=== PATIENT | male | born 1960 | race Caucasian/White ===

== ENCOUNTER 2022-04-19 09:53 | Inpatient (IN) ==
--- NOTE | 2022-03-28 09:01 | PAT Medication Instructions ---
Medication Instructions Date of Service March 28, 2022 Home Medications aspirin 81 mg capsule 81 mg PO HS atorvastatin 80 mg tablet 80 mg PO PM hydrocodone 5 mg-acetaminophen 325 mg tablet 1 tab PO Q6H PRN Pain indomethacin 25 mg capsule 25 mg PO TID lisinopril 40 mg tablet 40 mg PO HS omeprazole 20 mg tablet,delayed release 20 mg PO QAM zolpidem 10 mg tablet 10 mg PO HS PRN Sleep ASK your surgeon for instructions indomethacin 25 mg capsule 25 mg PO TID ASK your prescriber and surgeon aspirin 81 mg capsule 81 mg PO HS Take morning of surgery hydrocodone 5 mg-acetaminophen 325 mg tablet 1 tab PO Q6H PRN Pain (if needed) omeprazole 20 mg tablet,delayed release 20 mg PO QAM Take evening before surgery atorvastatin 80 mg tablet 80 mg PO PM hydrocodone 5 mg-acetaminophen 325 mg tablet 1 tab PO Q6H PRN Pain (if needed) lisinopril 40 mg tablet 40 mg PO HS zolpidem 10 mg tablet 10 mg PO HS PRN Sleep (if needed) Other Notes If you have any questions please call us at [phone] or [phone] or [phone] or [phone]
--- NOTE | 2022-03-31 12:56 | Anesthesiology Consultation ---
Date of Service March 31, 2022 Assessment & Plan (1) Encounter for pre-operative examination: - COVID screening: Per assessment on 03/31: No known COVID-19 positive contacts or current COVID-19 related symptoms. Travel screen negative. Patient vaccinated. At surgeon discretion if preop Covid testing being done. - Outpatient joint assessment: Pt currently scheduled for inpatient pathway. If surgeon requests review for outpatient joint pathway, patient is acceptable candidate for outpatient joint program from anesthesia standpoint pending surgeon's office assessment that patient is motivated, has good support and completes [facility] Program preop requirements. - Neurology office visit (02/24/22): "62-year-old male with history of hypertension, hyperlipidemia, and chronic daily headaches as well as previous left large ICA aneurysm found in 1982 status post 4 surgical procedures including clipping complicated by occlusion of the left internal carotid artery with stroke involving the left [employer]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 presenting to clinic for follow-up. Patient was last seen by myself in July of 2020. We did try 2 rounds of Botox 155 units for chronic headaches although he had no significant improvement. He remains on hydrocodone 7 tablets daily for chronic pain. Pain is predominantly left-sided. It is continuous but waxes and wanes in intensity. He always has some baseline pain. Been tried on several other medications in the past which did not help including gone blocks, Topamax, and gabapentin. There has been discussion the past about concerns for medication overuse headache and he has begun to carefully wean off of hydrocodone... 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 I did discuss concerns regarding medication overuse headache and chronic opioid use. He is working with pharmacy to slowly wean off of hydrocodone tolerated. He is currently down to 7 tablets daily. Headaches have been refractory in the past to Topamax, gabapentin, SHANNON block, and Botox. Headache is side locked on the left side and continuous. He is currently on Celexa for mood which he reports is good. 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 He has not been on this medication in the past. Recommended dose would be 25 mg 3 times daily with meals and titrated as tolerated. However given that he is on Celexa there is some risk of interaction. He will discuss with his PCP, Dr. Schaefer, if he can stop this medication. If patient is able stop Celexa will try indomethacin. Otherwise did briefly discuss consideration of some of the new monoclonal antibody injections. However overall prognosis is likely poor while using high-dose opiate. I will arrange for follow-up in 1 year sooner if needed. They will otherwise keep in touch via [employer] message in." > Pt had trial of indomethacin- stopped d/t reaction of dizziness and unsteadiness. Chart Review Chart Review: Acceptable Risk for Surgery and Patient seen in Pre Admission Testing Teaching & Discussion Pre-Anesthesia Teaching/Discussion Notes: Instructed NPO after midnight before surgery,except medications with 15 cc of water. Medication instructions provided according to the PAT guidelines. History Surgery Operation Date: 04/19/22 13:15 Proposed Procedures p Right Total Shoulder Arthroplasty, Removal Suture [place] - Federico Mccain MD Height/Weight Height: 5 ft 8 in Weight: 85.5 kg Allergies Allergy/AdvReac Type Severity Reaction Status Date / Time strawberry Allergy Unknown Itchy, Unverified 03/31/22 12:59 hives (reaction as child) indomethacin AdvReac Dizziness, Uncoded 03/31/22 12:59 unsteady Medications Home Medications Medication Instructions Recorded Confirmed Last Taken aspirin 81 mg capsule 81 mg PO HS 03/27/22 03/27/22 Unknown atorvastatin 80 mg tablet 80 mg PO PM 03/27/22 03/27/22 Unknown hydrocodone 5 mg-acetaminophen 325 1 tab PO Q6H PRN Pain 03/27/22 03/27/22 Unknown mg tablet indomethacin 25 mg capsule 25 mg PO TID 03/27/22 03/27/22 Unknown lisinopril 40 mg tablet 40 mg PO HS 03/27/22 03/27/22 Unknown omeprazole 20 mg tablet,delayed 20 mg PO QAM 03/27/22 03/27/22 Unknown release zolpidem 10 mg tablet 10 mg PO HS PRN Sleep 03/27/22 03/27/22 Unknown Past Medical History Medical History Chronic pain Chronic head pain GERD (gastroesophageal reflux disease) History of carotid artery disease left large ICA aneurysm found in 1982 s/p 4 surgical procedures including clipping complicated by occlusion of the left internal carotid artery with stroke involving the left [employer]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 History of stroke (right side of each eye b/l) Hyperlipidemia Hypertension Short-term memory loss Exercise / Class Metabolic Activity II 4-5 Yardwork/Stairs/Walk up hill (one FS (no CP, no SOB)) Past Family History Family History Other No family history of adverse response to anesthesia Past Surgical History Surgical History History of lumbar surgery History of surgery on wrist Hx of cerebral aneurysm repair Left internal carotid aneurysm repair x4 (early ) Hx of colonoscopy Hx of rotator cuff surgery Rx2, Lx1 Past Anesthesia History No Hx of Anesthesia Complications and No Family Hx of Anesthesia Complications History of PONV No Hx of PONV and No Hx of Motion Sickness Social History Smoking Status: Current every day smoker tobacco type: cigarettes Smoking cigarettes per day: 18 cigs/day Do You Dip or Chew Tobacco: No Hx Alcohol Use: No Hx Substance Use: No substance use type: does not use Review of Systems Patient denies chest pain, shortness of breath, dyspnea on exertion, fever, chills, cough, wheezing, palpitations. Physical Exam Vital Signs VITALS BP 126/78 P 62 TEMP 98.3 SP02 98%RA RESP 18 PHYSICAL Full cervical extension range of motion. Full TMJ range of motion. TMD 4 finger breaths Mallampati Score 3 Dentition: intact Lungs: clear throughout to auscultation Cardiac: regular rate and rhythm, no murmurs noted Spine: normal Carotid arteries: negative bruit Extremities: no edema Lab Results Anesthesia Preop Results Results Anesthesia Widget: WBC 7.85 K/ul (4.8-10.8) 03/31/22 Hgb 13.4 g/dl (14.0-18.0) L 03/31/22 Hct 41.3 % (42.0-52.0) L 03/31/22 Plt 288 K/uL (130-400) 03/31/22 Na 136 mmol/L (136-145) 03/31/22 K 4.9 mmol/L (3.5-5.1) 03/31/22 Cl 104 mmol/L (98-107) 03/31/22 CO2 30 mmol/L (21-32) 03/31/22 BUN 21 mg/dl (6-23) 03/31/22 Creat 0.97 mg/dl (0.6-1.4) 03/31/22 Glucose Level 110 mg/dl (70-99(Fasting)) H 03/31/22 PT 10.2 Seconds (9.0-12.0) 03/31/22 PTT 27.5 Seconds (21.0-31.0) 03/31/22 INR 1.0 (0.9-1.1) 03/31/22 HA1c 6.1 % (4.5-5.6) H 03/31/22 Urine Color Dark Yellow 03/31/22 Urine Appearance Clear (Clear) 03/31/22 Urine pH 5.5 (4.5-7.5) 03/31/22 Urine Specific [place] 1.034 (1.000-1.030) H 03/31/22 Urine Protein Trace (Negative) H 03/31/22 Urine Glucose (UA) Negative (Negative) 03/31/22 Urine Ketones Trace (Negative) H 03/31/22 Urine Blood Negative (Negative) 03/31/22 Urine Nitrite Negative (Negative) 03/31/22 Urine Bilirubin Negative (Negative) 03/31/22 Urine Urobilinogen Negative (Negative) 03/31/22 Urine Leukocyte Esterase Negative (Negative) 03/31/22 Urine WBC (Auto) 1-5 /hpf (0-5) 03/31/22 Urine RBC (Auto) 0-4 /hpf (0-4) 03/31/22 Urine Hyaline Casts (Auto) 1-5 /lpf (0-5) 03/31/22 Urine Epithelial Cells (Auto) 5-10 /lpf (0-5) H 03/31/22 Urine Bacteria (Auto) Negative (Negative) 03/31/22 Blood Type A Positive 03/31/22 Antibody Screen NEGATIVE 03/31/22 Testing Electrocardiogram Date: 08/03/21 Findings: + NSR @ (74) Chest X-Ray Date: 03/31/22 FINDINGS: Lung volumes are normal. Lungs are clear. There is no pneumothorax or pleural effusion. Cardiac size is normal. Mediastinal contours are normal. There is no evidence for pulmonary edema. IMPRESSION: No acute cardiopulmonary findings. COVID-19 Risk Screen Screening Information COVID-19 Screen Date: 03/31/22 Exposure 21 Days Family/Household +COVID Last 21 Days: No Exposure 10 Days Any COVID Exposure Last 10 Days: No Symptoms Last 10 Days Experienced COVID Sx Last 10 Days: No + COVID 0-90 Days COVID + in Last 0-90 Days: No
--- NOTE | 2022-04-18 10:27 | History & Physical Report ---
Date of Service April 18, 2022 Assessment & Plan (1) Rotator cuff arthropathy of right shoulder: Plan: Treatment options discussed with patient. He has a failed rotator cuff repair with irreparable tear of his rotator cuff. He has failed conservative measures and would like to proceed with surgical intervention. Risks, benefits and alternatives to surgery including but not limited to infection, DVT, pain, stiffness, need for revision surgery, damage to blood vessels, damage to nerves, PE, , were discussed with the patient and they wish to proceed. Plan on right reverse total shoulder arthroplasty with suture anchor removal. Surgery scheduled for 04/19/22 at [facility] with Dr. Mccain. All questions answered. Patient will follow up post op. History of Present Illness Chief Complaint: Right shoulder pain Primary Care Provider: Jones Schaefer MD 62yo with PMHx significant for HTN, high cholesterol, hx of CAD, hx of stroke with ongoing right shoulder pain. Pain is interfering with his daily activity. He has failed conservative measures. He would like to proceed with surgical intervention. Patient denies headaches, sweats, fevers, chills, double vision, blurred vision, cough, sore throat, dysphagia, chest pain, sob, wheezing, n/v/d/c, numbness, tingling, fatigue, urinary symptoms, mood disorders. ROS positive for right shoulder pain and stiffness. Allergies Allergy/AdvReac Type Severity Reaction Status Date / Time strawberry Allergy Unknown Itchy, Unverified 03/31/22 12:59 hives (reaction as child) indomethacin AdvReac Dizziness, Uncoded 03/31/22 12:59 unsteady Home Medications Medication Instructions Recorded Confirmed Type aspirin 81 mg capsule 81 mg PO HS 03/27/22 03/27/22 History atorvastatin 80 mg tablet 80 mg PO PM 03/27/22 03/27/22 History hydrocodone 5 mg-acetaminophen 325 1 tab PO Q6H PRN Pain 03/27/22 03/27/22 History mg tablet indomethacin 25 mg capsule 25 mg PO TID 03/27/22 03/27/22 History lisinopril 40 mg tablet 40 mg PO HS 03/27/22 03/27/22 History omeprazole 20 mg tablet,delayed 20 mg PO QAM 03/27/22 03/27/22 History release zolpidem 10 mg tablet 10 mg PO HS PRN Sleep 03/27/22 03/27/22 History Past Med/Surg History Medical History Chronic pain Chronic head pain GERD (gastroesophageal reflux disease) History of carotid artery disease left large ICA aneurysm found in 1982 s/p 4 surgical procedures including clipping complicated by occlusion of the left internal carotid artery with stroke involving the left [employer] SUPER[employer] History of stroke (right side of each eye b/l) Hyperlipidemia Hypertension Short-term memory loss Surgical History History of lumbar surgery History of surgery on wrist Hx of cerebral aneurysm repair Left internal carotid aneurysm repair x4 (early ) Hx of colonoscopy Hx of rotator cuff surgery Rx2, Lx1 Family History Other No family history of adverse response to anesthesia Social History Smoking Status: Current every day smoker Cigarettes Per Day: 18 cigs/day; Second Hand Exposure: No; Hx Alcohol Use: No Hx Substance Use: No Preferred Language: Iraqi Communication Ability: Effective Compliance Technician Required: No Beliefs That Will Affect Care: None Current Living Situation: Spouse Feels Safe at Home: Yes Assistive Devices: Glasses Review of Systems All systems reviewed & are unremarkable except as noted in HPI & below Physical Exam Constitutional: well developed and well nourished; no acute distress Eyes: PERRL, conjunctivae normal, anicteric sclerae ENMT: external ear and nose normal, oropharynx normal Neck: trachea midline, no thyromegaly Respiratory: normal respiratory effort, lungs clear to auscultation Cardiovascular: RRR, no murmur, no edema Musculoskeletal: Right shoulder: Crepitation with ROM. Tenderness anterolateral acromion. FF to 160 degrees, abduction to 160 degrees. ER to 40 degrees. Pain and weakness noted with strength testing. Skin: no rashes, warm and dry Neurologic: patellar DTR's 2+ bilat, sensation intact Psychiatric: A+Ox3, euthymic affect Results & Data ([facility]) Diagnostic Findings Right shoulder radiographs demonstrate proximal migration of humerus, mild to moderate arthritic changes. MRI demonstrates failed rotator cuff repair with large retracted tear of his rotator cuff
[~2022-04-19 09:53] MED LIST: ACETAMINOPHEN 500 MG TAB PO SCH; BUPIVACAINE 0.5 % 5 MG/1 ML PF 10ML VIAL ONE; CeleBREX 200 MG CAP PO SCH; FAMOTIDINE 20 MG TAB PO SCH; GABAPENTIN 600 MG DOSE PO SCH; LIDOCAINE 2% MPF LOCAL 5 ML VIAL INFIL ONE; LR 15ML/HR IV SCH; METOCLOPRAMIDE HCL 10 MG TABLET PO SCH; TRANEXAMIC ACID 1,000 MG **IV Intra-op IV SCH; TRANEXAMIC ACID 1,000 MG **IV Pre-op IV SCH; ceFAZolin 2000MG 2,000 MG/15 ML SYR IV SCH; dexAMETHasone 4 MG TAB PO SCH
[2022-04-19] MEDS ORDERED: ONDANSETRON INJ 2 MG/ML 2 ML VIAL IV PRN ×2 (11:14→18:51)
[2022-04-19] MEDS ORDERED: HYDROmorphone INJ 2 MG/ML SYR/VIAL IV PRN (11:14)
[2022-04-19] MEDS ORDERED: ATROPINE SULFATE 0.1 MG/ML 10ML SYR IV PRN (11:14)
[2022-04-19] MEDS ORDERED: fentaNYL citrate PF 100 MCG/2 ML VIAL IV PRN (11:14)
[2022-04-19] MEDS ORDERED: PROMETHAZINE HCL 12.5 MG in SODIUM CHLORIDE 0.9% 50 ML IV PRN (11:14)
[2022-04-19] MEDS ORDERED: ePHEDrine sulfate 50 MG/ML AMP IV PRN (11:14)
[2022-04-19] MEDS ORDERED: MIDAZOLAM HCL 1 MG/ML 2ML VIAL ONE ×2 (12:07→13:11)
[2022-04-19] MEDS ORDERED: PROPOFOL IV EMULSION 10 MG/ML 20 ML VIAL IV ONE (12:07)
[2022-04-19] MEDS ORDERED: LIDOCAINE 2% MPF LOCAL 5 ML VIAL INFIL ONE (12:07)
[2022-04-19] MEDS ORDERED: ROCURONIUM BROMIDE 10 MG/ML 5 ML VIAL IV ONE ×3 (12:07→15:45)
[2022-04-19] MEDS ORDERED: fentaNYL citrate PF 100 MCG/2 ML VIAL ONE (12:08)
[2022-04-19] MEDS ORDERED: ONDANSETRON INJ 2 MG/ML 2 ML VIAL ONE (12:14)
--- NOTE | 2022-04-19 13:23 | History & Physical Bridge Note ---
Date of Service April 19, 2022 History & Physical Bridge Note I have examined the patient, reviewed the History & Physical and in the interval since the performance of the History & Physical I have noted the following changes of clinical significance: no changes noted
[2022-04-19] MEDS ORDERED: SUGAMMADEX SODIUM 200 MG/2 ML VIAL IV ONE (16:45)
[2022-04-19] MEDS ORDERED: HYDROmorphone INJ 2 MG/ML SYR/VIAL ONE (17:03)
--- NOTE | 2022-04-19 17:39 | Operative Report ---
Post Operative Report Pre & Post Diagnosis Operation Date: 04/19/22 13:05 Pre-Op Diagnosis: Right Shoulder rotator cuff arthropathy, glenohumeral arthritis, failed rotator cuff repair, Retained Hardware and suture material Post-Op Diagnosis: Same with marked biceps tendinopathy tenosynovitis probable rupture intra- articular I identified the patient and participated in the time-out.: Yes Procedure Operation Date: 04/19/22 13:05 Actual Procedures p Right Reverse Total Shoulder Arthroplasty, Removal deep hardware (multiple suture anchors peek material and suture material), biceps tenodesis and tenosynovectomy- Federico Mccain MD Surgeon Federico Mccain MD Research Laboratory Manager Kirby ARGUELLO Estimated Blood Loss 100 Findings Consistent with Post-Op Diagnosis Specimens Humeral head Drains 2 Hemovac Anesthesia Type General Regional Complications none Disposition Disposition: Recovery Room Indications 62-year-old male with chronic right shoulder pain after a failed rotator cuff repair with weakness pain radiographic signs of developing rotator cuff arthropathy. MRI demonstrates recurrent tear of the rotator cuff in several areas including subscapularis upper aspect. There is narrowing of the glenohumeral joint superiorly. Description of Procedure The patient was taken to the operating room and anesthetized under regional block and general anesthetic. The patient was positioned on the operating table in a 30 beach chair position with a towel roll under the medial border of the right scapula. The arm was draped free to be able to manipulate the shoulder as needed. The right upper extremity was prepped and draped in usual sterile fashion. Exam demonstrated 160 degrees forward flexion 100 degrees abduction and 45 degrees of external rotation and 70 degrees of internal rotation. Multiple scars from old arthroscopic surgery all well-healed no signs of infection. An anterior deltopectoral approach was performed. A longitudinal incision was made in the deltopectoral interval. The skin was incised sharply. Subcutaneous flaps were elevated off the fascia. The small cephalic vein was dissected out and retracted lateral with the deltoid. The clavipectoral fascia was divided at the lateral margin of the conjoined tendon and extended up to the CA ligament. The following findings were noted: There was a very thickened bursa over the subscapularis over superior and superior posterior rotator cuff. The bursa was scarred to the acromion process. There was marked tenosynovitis from the biceps with a very widened biceps which almost appeared somewhat retracted as though it most probably was torn proximally in the joint but the section of the tendon between the pectoralis upper edge and the bicipital groove was markedly swollen. The lower subscapularis was intact upper third head areas were sutures were placed and the repair had failed partially in that area with the superficial fibers of the upper subscapularis retracted medially. There is a section of the supraspinatus that was intact and then the posterior supraspinatus and infraspinatus were torn and there was a thin scar tissue between those areas with stretched out sutures. On more careful inspection where the repair was performed the anchors were placed in the superior articular surface of the humeral head which was medial to the normal footprint and there was still surrounding cartilage around the area where the anchors were placed. Rotator cuff failed with soft tissue failure no anchor pullout.. The upper centimeter of the pectoralis was released for inferior exposure. A self-retaining retractor was placed. The upper centimeter of the pectoralis was released for inferior exposure a tenosynovectomy was performed around the biceps tendon. The inflamed biceps tenosynovium was resected and the thickened section of inflamed biceps tendon was resected and the more normal-appearing tendon just at the upper edge of the pectoralis and falciform ligament area was tenodesed to the pectoralis tendon with [id number] #2 FiberWire sutures. The subscapular muscle fibers were split longitudinally at the level of the circumflex vessels. The circumflex vessels were identified and tied off with silk ties and divided laterally. A Kitner elevator was used to free up the inferior fibers of the subscapularis off of the capsule. The axillary nerve was identified with a tug test and protected with a blunt Virgilio retractor between the nerve and the capsule. The subscapularis tendon was then taken down off of the lesser tuberosity subperiosteally, a Vicryl traction suture was placed and a subperiosteal dissection was performed along the neck of the humerus as the arm was gradually externally rotated exposing the humeral head. The humeral head findings demonstrated some grade 4 inferior and posterior inferior articular changes with some osteophytes inferiorly and posterior inferiorly on the humeral head and was 1 central area of grade IV chondromalacia chondral lesion about 8 mm in diameter. retractors were readjusted and the inferior osteophytes were all resected using a small rongeur. A Palacios elevator was used to assist in releasing the capsule of the neck of the humerus. The capsule was divided with Beal scissors down to the glenoid released off the anterior glenoid and the rotator interval was released to meet the capsular release and a 360 release of the subscapularis was accomplished. A Fukuda retractor was placed into the joint retracting the humeral head posterior. Glenoid findings demonstrated intact articular cartilage and labrum but no biceps tendon. The labrum was resected circumferentially. an anterior-inferior and posterior inferior capsular release were performed with electrocautery and a Palacios elevator on bone with the axillary nerve protected inferiorly by the retractor. Attention was then taken to the humeral preparation. The suture tapes that it cut through the tendon were removed with a scalpel and a rongeur. The small area of supraspinatus tendon that was still attached was released off the greater tuberosity and tagged with a Vicryl suture. The cutting guide was placed into the humeral head. It was positioned at 20 of retroversion. Oscillating saw was used to resect the humeral head giving the cut above the level of the posterior rotator cuff ins ertion site. Saw cut through what appeared to be at least 4 anchors which were then subsequently moved with a rongeur and the humerus was then prepared for the stem. I used the ascend flex stem from [employer]. The centering awl was first used followed by the sizing broaches followed by trial broaches up to a size 4B long which had the appropriate fit and fill. The diaphysis was templated at a larger size but the metaphyseal bone was very dense and the 4 implant was chosen. The appropriate sized cut protector was placed. The humerus was then retracted posterior to the glenoid. The glenoid was sized for a 25 baseplate. The guide for the baseplate was positioned in a 10 inferior tilt and the central drill hole was made. The reamer for the 25 baseplate was used. The central drill was widened for the peg. The 20 a hydroxyapatite-coated standard post 25 mm baseplate was impacted into position. The base plate was transfixed with superior and inferior locking screws and anterior and posterior compression screws with stable fixation. Bone quality was very dense with excellent fixation. The fan reamer was used for the 36 millimeter glenoid sphere. I chose to trial a 36+2 offset glenosphere and then we trialed the plus or high offset tray on the humerus with a +6 reversed 36 mm insert. And this gave stability through full range of motion and no shuck and appropriate soft tissue tension. The trials were removed in order to remove the trial baseplate and then the trial stem was placed back in and a cut protector so we could expose the glenoid. The trial glenoid glenosphere was removed and then after irrigation and drying the baseplate the 36 mm +2 eccentric glenosphere was placed with eccentric offset inferior. This was impacted with the impactor and then the security screw was tightened and assessed with a Palacios elevator to be stable. Attention was taken back to the humerus. The cut protector and trial stem were removed, 3 drill holes are made into the harder bone in the bicipital groove area and 3 #5 FiberWire sutures were placed transosseously. The canal was irrigated with pulse saline solution.. The final component was assembled. The final component was Tornier 4B long PTC stem assembled to plus or high offset tray with a 36,+6 mm reversed insert.. This was then impacted into the humerus with a tight press-fit. It was reduced to the glenoid sphere. Stability was verified. Subscapularis was repaired with the #5 FiberWire sutures using Tommie-Braulio suture technique. Lateral row soft tissue repair was performed with #2 FiberWire [id number] sutures. The section of the supraspinatus tendon was rotated posteriorly to sew to the intact infraspinatus teres minor section to help with external rotation strength. Some scarred bursa in the subacromial space on the acromion was resected. The pectoralis was repaired with #2 FiberWire [id number] sutures reinforcing the biceps tendon tenodesis. The arm was taken through a range of motion which demonstrated 145 degrees flexion with 100 degrees abduction and 50 degrees external rotation and 75 degrees internal rotation without any tension on the repair and without any impingement in that arc. The implant was stable through the range of motion tested. The wound was copiously irrigated. 2 Hemovac drains were placed. There was some bleeding of the cephalic vein that was tied off with silk ties. The deltopectoral interval was closed with [id number] #1 Vicryl sutures. The subcutaneous tissues were closed with 2-0 Vicryl sutures. The skin was closed with victor hugo. Sterile dressings were applied and a shoulder immobilizer. Kirby ARGUELLO my physician ice cream freezer assistant acted as regulatory assistant throughout the procedure .He performed functions including patient positioning, arm positioning, prepping and draping, soft tissue retraction, instrument management, suture management and performed the subcutaneous and skin closure and will participate in the postoperative care of the patient. I attest to the content of the Intraoperative Record and any orders documented therein. Any exceptions are noted below.
--- NOTE | 2022-04-19 18:36 | Anesthesiology Progress Note ---
Date of Service April 19, 2022 Anesthesia Post Procedure Vital Signs Vital Signs: Temp Pulse Resp BP Pulse Ox O2 Del Method O2 Flow Rate 04/19/22 18:33 97.0 F L 80 18 107/66 93 Room Air 04/19/22 18:25 97.2 F L 83 18 108/66 93 Room Air 04/19/22 18:15 97.2 F L 84 15 111/63 92 Room Air 04/19/22 18:05 81 17 116/76 91 Room Air 04/19/22 17:55 85 15 121/69 94 Room Air 04/19/22 17:44 97.2 F L 82 17 114/64 98 Oxymask 2 04/19/22 17:34 97.0 F L 75 14 122/65 100 Oxymask 9 04/19/22 10:22 98.2 F 63 20 126/75 98 Room Air Pain Intensity Right Shoulder: Pain Intensity: 6 Transfer of Care Handoff Completed per policy Notes Mental Status: alert / awake / arousable and participated in evaluation Patient Amnestic to Procedure: Yes Nausea / Vomiting: adequately controlled Pain: adequately controlled Airway Patency, RR, SpO2: stable & adequate BP & HR: stable & adequate Hydration State: stable & adequate Anesthetic Complications: no major complications apparent and Pt Satisfied with anesthetic care
--- NOTE | 2022-04-19 18:42 | XRay Report ---
RIGHT SHOULDER 2 VIEWS CLINICAL HISTORY: Postoperative examination. FINDINGS: 2 portable views of the right shoulder are obtained. A right shoulder arthroplasty is in ne ar anatomic alignment. No acute fracture is seen. There is widening at the acromioclavicular joint. S kin clips, a surgical drain, subcutaneous gas, and soft tissue swelling overlying the right shoulder are expected postoperative changes. The right lung parenchyma is clear as visualized noting basilar a telectasis. IMPRESSION: Expected postoperative findings status post right shoulder arthroplasty. No acute fractur e is seen. Electronically signed by: Niranjan Gardner M.D. 04/19/2022 6:40 PM
[2022-04-19] MEDS ORDERED: MAGNESIUM HYDROXIDE SUSP 30 ML UDC PO PRN (18:51)
[2022-04-19] MEDS ORDERED: TAMSULOSIN HCL 0.4 MG CAP PO PRN (18:51)
[2022-04-19] MEDS ORDERED: SODIUM CHLORIDE 0.9% 1000ML 1,000 ML IV SCH (18:51)
[2022-04-19] MEDS ORDERED: HYDROmorphone INJ 0.5 MG/0.5 ML SYR IV PRN (18:51)
[2022-04-19] MEDS ORDERED: NALOXONE HCL 0.4 MG/1 ML VIAL/CARP IV PRN (18:51)
[2022-04-19] MEDS ORDERED: bisacodyL 10 MG SUPP PR PRN (18:51)
[2022-04-19] MEDS ORDERED: ZOLPIDEM TARTRATE 10 MG TAB PO PRN (18:51)
[2022-04-19] MEDS ORDERED: METOCLOPRAMIDE HCL INJ 5 MG/ML 2 ML VIAL IV PRN (18:51)
[2022-04-19] MEDS ORDERED: lisinopril 40 MG TAB PO SCH (21:00)
[2022-04-19] MEDS ORDERED: SENNA 8.6 MG TAB PO SCH (21:00)
[2022-04-19] MEDS ORDERED: ATORVASTATIN 40 MG TAB PO SCH (21:00)
[2022-04-19] MEDS: oxyCODONE HCL IR 5 MG TAB (IMMEDIATE RELEASE) PO PRN (21:26)
[2022-04-19] MEDS: DOCUSATE SODIUM 100 MG CAP PO SCH (22:22)
[2022-04-19] MEDS: ACETAMINOPHEN 500 MG TAB PO SCH (22:22)
[2022-04-19] MEDS: ceFAZolin 2000MG 2,000 MG/15 ML SYR IV SCH (23:03)
[2022-04-20] MEDS: ACETAMINOPHEN 500 MG TAB PO SCH (06:19)
[2022-04-20] MEDS: oxyCODONE HCL IR 5 MG TAB (IMMEDIATE RELEASE) PO PRN ×2 (06:19→09:56)
[2022-04-20 06:51] LABS: Basophils # (auto) 0.02 K/uL (0-0.2); Basophils % (auto) 0.2 %; Hematocrit (blood only) 36.4 % (42.0-52.0); Hemoglobin 11.9 g/dl (14.0-18.0); Immature Granulocytes # (auto) 0.05 K/uL (0.01-0.20); Immature Granulocytes % (auto) 0.4 %; Lymphocytes # (auto) 1.23 K/uL (1.2-3.4); Lymphocytes % (auto) 9.5 %; Mean Corpuscular Hemoglobin 31.2 pg (25.0-34.0); Mean Corpuscular Hgb Conc 32.7 g/dL (32.0-36.0); Mean Corpuscular Volume 95.5 fL (80.0-100.0); Mean Platelet Volume 9.5 fL (9.4-12.4); Monocytes # (auto) 0.67 K/uL (0.11-0.59); Monocytes % (auto) 5.2 %; Neutrophils # (auto) 10.91 K/uL (1.40-6.50); Neutrophils % (auto) 84.7 %; Platelet Count 249 K/uL (130-400); RDW Coefficient of Variation 13.1 % (11.5-14.5); RDW Standard Deviation 46.1 fL (36.4-46.3); Red Blood Count 3.81 M/uL (4.70-6.10); White Blood Count 12.88 K/ul (4.8-10.8)
[2022-04-20 07:14] LABS: BUN Creatinine Ratio 23.1 (10-20); Calcium 8.7 mg/dl (8.5-10.1); Creatinine Clr Calc Pharmacy 87.7 ml/min; Est GFR (African American) 103.6 ml/min; Est GFR (Non-African American) 89.4 ml/min; Potassium 4.5 mmol/L (3.5-5.1)
--- NOTE | 2022-04-20 07:32 | Orthopedic Progress Note ---
Date of Service April 20, 2022 Assessment & Plan (1) Rotator cuff arthropathy of right shoulder: Plan: Postop day 1 right reverse total shoulder arthroplasty -PT/OT no formal therapy of the shoulder at this time. Patient will do home exercises until instructed to start therapy. -DVT prophylaxis: SCDs, aspirin 81 mg daily -AM labs: Hemoglobin 11.9 from 13.4 preop. Mild leukocytosis likely reactive due to surgical stress and perioperative steroids. BMP is pending -Discharge planning: Plan on discharge home today. Patient is on hydrocodone chronically. He is going to use this as his pain control. We will send small prescription for oxycodone in case this is not adequately controlling his pain. Admission and Anticipated Discharge Date Admission Date: April 19, 2022 Subjective Patient is postop day 1 right reverse total shoulder arthroplasty. He is doing well this morning. No complaints of pain. Still having numbness in his hand due to nerve block. No other complaints. Denies chest pain, shortness of breath, dizziness/lightheadedness, nausea/vomiting/diarrhea. Review of Systems Review of Systems: All systems reviewed & are unremarkable except as noted in Subjective Physical Exam Physical Exam: Right shoulder: Sling in place. Dressing is clean, dry, intact. Hemovac in place. Patient is able to flex his elbow. Fingers are mobile however does have difficulty extending his wrist. Has persistent numbness in his fingers residual due to the nerve block. Results & Data Vital Signs (Past 12 Hours) Vital Signs Temp Pulse Resp BP Pulse Ox O2 Del Method 04/20/22 04:54 36.5 C 94 H 18 104/61 94 Room Air 04/20/22 00:58 36.5 C 70 18 118/66 96 Room Air 04/19/22 21:49 36.6 C 75 18 108/66 96 Room Air 04/19/22 20:51 36.5 C 72 18 104/63 97 Room Air 04/19/22 19:52 36.6 C 81 18 122/78 97 Room Air Laboratory Results Lab Results 04/19/22 04/20/22 04/20/22 Range/Units 10:10 05:49 05:49 WBC 12.88 H (4.8-10.8) K/ul RBC 3.81 L (4.70-6.10) M/uL Hgb 11.9 L (14.0-18.0) g/dl Hct 36.4 L (42.0-52.0) % MCV 95.5 (80.0-100.0) fL MCH 31.2 (25.0-34.0) pg MCHC 32.7 (32.0-36.0) g/dL RDW Std Deviation 46.1 (36.4-46.3) fL RDW Coeff of Sarbjit 13.1 (11.5-14.5) % Plt Count 249 (130-400) K/uL MPV 9.5 (9.4-12.4) fL Immature Gran % (Auto) 0.4 % Neut % (Auto) 84.7 % Lymph % (Auto) 9.5 % Haralson % (Auto) 5.2 % Eos % (Auto) 0.0 % Baso % (Auto) 0.2 % Neut # (Auto) 10.91 H (1.40-6.50) K/uL Lymph # (Auto) 1.23 (1.2-3.4) K/uL Haralson # (Auto) 0.67 H (0.11-0.59) K/uL Eos # (Auto) 0.00 (0-0.50) K/uL Baso # (Auto) 0.02 (0-0.2) K/uL Immature Gran # (Auto) 0.05 (0.01-0.20) K/uL Sodium 134 L (136-145) mmol/L Potassium 4.5 (3.5-5.1) mmol/L Chloride 101 (98-107) mmol/L Carbon Dioxide 27 (21-32) mmol/L Anion Gap 6 (3-11) BUN 21 (6-23) mg/dl Creatinine 0.91 (0.6-1.4) mg/dl Est Cr Clr Drug Dosing 87.7 ml/min Est GFR ( Amer) 103.6 ml/min Est GFR (Non-Af Amer) 89.4 ml/min BUN/Creatinine Ratio 23.1 H (10-20) Glucose 118 H (70-99(Fasting)) mg/dl Calcium 8.7 (8.5-10.1) mg/dl SARS-CoV-2, RNA, NAAT NEGATIVE (NEGATIVE)
[2022-04-20] MEDS: DOCUSATE SODIUM 100 MG CAP PO SCH (08:31)
[2022-04-20] MEDS: ceFAZolin 2000MG 2,000 MG/15 ML SYR IV SCH (08:31)
[2022-04-20] MEDS ORDERED: MULTIVITAMIN TAB PO SCH (09:00)
[2022-04-20] MEDS ORDERED: PANTOprazole 40 MG TAB PO SCH (09:00)
--- NOTE | 2022-04-20 09:00 | Hospitalist Consultation ---
Date of Consultation April 20, 2022 Assessment & Plan (1) Rotator cuff arthropathy of right shoulder: POD#[address] Mccain Activity and wound care orders as per ortho Pain control with bowel regimen PT/OT Monitor H/H for acute blood loss anemia and transfuse blood products PRN EBL 100 Hgb 11.9 (preop 13.4), WBC 12.8K --likely reactive due to surgery/intraoperative steroids Medically stable for DC today, prophylactic antibiotics ordered by orthopedics (2) Hypertension: BP controlled, continue lisinopril (3) History of carotid artery disease: (4) History of stroke: History of left large ICA aneurysm found in 1982 status post 4 surgical p rocedures including clipping complicated by occlusion of the left internal carotid artery with stroke involving the left [employer] Continue ASA and statin (5) Chronic headache: Follows with neurology, on chronic hydrocodone DVT PROPHYLAXIS SCDs, ASA 81 mg daily as per Ortho Thank you for this consultation. We will follow the patient with you during their hospital stay. You can reach a member of the [facility] Team 28/08 via the [facility] role in [facility] [place] [employer]. I spent a total of 45 minutes coordinating, documenting, and providing care for this patient excluding time spent in the performance of separately billed services. This included personally reviewing all current laboratories and imaging studies, medication reconciliation, outpatient chart review, and discussion with specialists. Supervising Physician Co-Signing Physician Notes I have seen and examined the patient and have discussed the case with the provider above. I agree with the assessment and plan as stated. DO Dann History of Present Illness Reason for Consultation: Post Op Medical Management Requesting Physician: Dr. Mccain Attending Physician: Federico Mccain MD History of Present Illness 62 year old male with PMH HTN, HLD, hx left ICA aneurysm s/p 4 procedures including clipping, hx CVA, chronic head pain on hydrocodone, and other problems listed below who is POD#[address] Mccain. History obtained from patient and review of outpatient PCP and neurology records. Postoperatively, the patient is doing well. He reports residual right hand numbness from nerve block. Reports pain is well controlled. Has chronic headache which is unchanged from baseline. No chest pain or shortness of breath. Denies lightheadedness and dizziness. No abdominal pain or nausea. Urinating without difficulty. Passing flatus however no BM. Allergies Allergy/AdvReac Type Severity Reaction Status Date / Time strawberry Allergy Unknown Itchy, Verified 04/19/22 10:19 hives (reaction as child) indomethacin AdvReac Dizziness, Uncoded 03/31/22 12:59 unsteady Home Medications Medication Instructions Recorded Confirmed Type aspirin 81 mg capsule 81 mg PO HS 03/27/22 04/19/22 History atorvastatin 80 mg tablet 80 mg PO PM 03/27/22 04/19/22 History hydrocodone 5 mg-acetaminophen 325 1 tab PO Q6H PRN Pain 03/27/22 04/19/22 History mg tablet lisinopril 40 mg tablet 40 mg PO HS 03/27/22 04/19/22 History omeprazole 20 mg tablet,delayed 20 mg PO QAM 03/27/22 04/19/22 History release zolpidem 10 mg tablet 10 mg PO HS PRN Sleep 03/27/22 04/19/22 History cefadroxil 500 mg capsule 500 mg PO BID #28 caps 04/20/22 Rx oxycodone 5 mg tablet 5 - 10 mg PO .Q4h-6h PRN pain #12 04/20/22 Rx tabs Patient History Medical History Chronic pain Chronic head pain GERD (gastroesophageal reflux disease) History of carotid artery disease left large ICA aneurysm found in 1982 s/p 4 surgical procedures including clipping complicated by occlusion of the left internal carotid artery with stroke involving the left [employer] History of stroke (right side of each eye b/l) Hyperlipidemia Hypertension Short-term memory loss Surgical History History of lumbar surgery History of surgery on wrist Hx of cerebral aneurysm repair Left internal carotid aneurysm repair x4 (early ) Hx of colonoscopy Hx of rotator cuff surgery Rx2, Lx1 Family History Other No family history of adverse response to anesthesia Social History Smoking Status: Current every day smoker Cigarettes Per Day: 18 cigs/day; Second Hand Exposure: No; Do You Dip or Chew Tobacco: No; Tobacco Cessation Education Requested by Patient: No Hx Alcohol Use: No Hx Substance Use: No Preferred Language: Romansh Communication Ability: Effective Gym Instructor Required: No Beliefs That Will Affect Care: None Current Living Situation: Spouse Other Information That Helps Us Care for You: No Feels Safe at Home: Yes Safety Concerns: Feels Safe At This Time Assistive Devices: None Review of Systems Review of Systems: ROS per HPI, all other systems reviewed and negative Results & Data Results & Data Vital Signs (Past 12 Hours) Vital Signs Temp Pulse Resp BP Pulse Ox O2 Del Method 04/20/22 04:54 36.5 C 94 H 18 104/61 94 Room Air 04/20/22 00:58 36.5 C 70 18 118/66 96 Room Air 04/19/22 21:49 36.6 C 75 18 108/66 96 Room Air
[2022-04-20] MEDS ORDERED: ASPIRIN 81 MG ECTAB PO SCH (21:00)
--- NOTE | 2022-04-21 10:31 | Discharge Summary ---
Date of Service April 21, 2022 Admission HPI Per Admitting Provider 62yo with PMHx significant for HTN, high cholesterol, hx of CAD, hx of stroke with ongoing right shoulder pain. Pain is interfering with his daily activity. He has failed conservative measures. He would like to proceed with surgical intervention. Patient denies headaches, sweats, fevers, chills, double vision, blurred vision, cough, sore throat, dysphagia, chest pain, sob, wheezing, n/v/d/c, numbness, tingling, fatigue, urinary symptoms, mood disorders. ROS positive for right shoulder pain and stiffness. Admission Exam Per Admitting Provider Constitutional: well developed and well nourished; no acute distress Eyes: PERRL, conjunctivae normal, anicteric sclerae ENMT: external ear and nose normal, oropharynx normal Neck: trachea midline, no thyromegaly Respiratory: normal respiratory effort, lungs clear to auscultation Cardiovascular: RRR, no murmur, no edema Musculoskeletal: Right shoulder: Crepitation with ROM. Tenderness anterolateral acromion. FF to 160 degrees, abduction to 160 degrees. ER to 40 degrees. Pain and weakness noted with strength testing. Skin: no rashes, warm and dry Neurologic: patellar DTR's 2+ bilat, sensation intact Psychiatric: A+Ox3, euthymic affect Principal Diagnosis Right shoulder failed rotator cuff repair Discharge Exam Right shoulder: Sling in place. Dressing is clean, dry, intact. Hemovac in place. Patient is able to flex his elbow. Fingers are mobile however does have difficulty extending his wrist. Has persistent numbness in his fingers residual due to the nerve block. Constitutional well developed and well nourished; no acute distress Discharge Data Allergies Allergy/AdvReac Type Severity Reaction Status Date / Time strawberry Allergy Unknown Itchy, Verified 04/19/22 10:19 hives (reaction as child) indomethacin AdvReac Dizziness, Uncoded 03/31/22 12:59 unsteady Consultations 04/17/22 11:22 Consult Hospitalist Routine Procedures Performed Operation Date: 04/19/22 13:05 Actual Procedures p Right Reverse Total Shoulder Arthroplasty, Removal Suture [place](Right) - Federico Mccain MD Ordered Studies 04/19/22 05:00 US - OR guided needle placemen Routine Hospital Course (1) Rotator cuff arthropathy of right shoulder: Postop day 1 right reverse total shoulder arthroplasty -PT/OT no formal therapy of the shoulder at this time. Patient will do home exercises until instructed to start therapy. -DVT prophylaxis: SCDs, aspirin 81 mg daily -AM labs: Hemoglobin 11.9 from 13.4 preop. Mild leukocytosis likely reactive due to surgical stress and perioperative steroids. BMP is pending -Discharge planning: Plan on discharge home today. Patient is on hydrocodone chronically. He is going to use this as his pain control. We will send small prescription for oxycodone in case this is not adequately controlling his pain. Lab Results 04/19/22 04/20/22 04/20/22 Range/Units 10:10 05:49 05:49 WBC 12.88 H (4.8-10.8) K/ul RBC 3.81 L (4.70-6.10) M/uL Hgb 11.9 L (14.0-18.0) g/dl Hct 36.4 L (42.0-52.0) % MCV 95.5 (80.0-100.0) fL MCH 31.2 (25.0-34.0) pg MCHC 32.7 (32.0-36.0) g/dL RDW Std Deviation 46.1 (36.4-46.3) fL RDW Coeff of Sarbjit 13.1 (11.5-14.5) % Plt Count 249 (130-400) K/uL MPV 9.5 (9.4-12.4) fL Immature Gran % (Auto) 0.4 % Neut % (Auto) 84.7 % Lymph % (Auto) 9.5 % Garvin % (Auto) 5.2 % Eos % (Auto) 0.0 % Baso % (Auto) 0.2 % Neut # (Auto) 10.91 H (1.40-6.50) K/uL Lymph # (Auto) 1.23 (1.2-3.4) K/uL Garvin # (Auto) 0.67 H (0.11-0.59) K/uL Eos # (Auto) 0.00 (0-0.50) K/uL Baso # (Auto) 0.02 (0-0.2) K/uL Immature Gran # (Auto) 0.05 (0.01-0.20) K/uL Sodium 134 L (136-145) mmol/L Potassium 4.5 (3.5-5.1) mmol/L Chloride 101 (98-107) mmol/L Carbon Dioxide 27 (21-32) mmol/L Anion Gap 6 (3-11) BUN 21 (6-23) mg/dl Creatinine 0.91 (0.6-1.4) mg/dl Est Cr Clr Drug Dosing 87.7 ml/min Est GFR ( Amer) 103.6 ml/min Est GFR (Non-Af Amer) 89.4 ml/min BUN/Creatinine Ratio 23.1 H (10-20) Glucose 118 H (70-99(Fasting)) mg/dl Calcium 8.7 (8.5-10.1) mg/dl SARS-CoV-2, RNA, NAAT NEGATIVE (NEGATIVE) Total Time Total Time Spent Total Time Spent (In Minutes): 20 Discharge Plan Discharge Items Patient Disposition: Home - Self-Care Reason For Visit: Right Shoulder Osteoarthritis, Retained Hardware Discharge Diagnosis: Right shoulder rotator cuff arthropathy Activity: Per Instructions section Non-emergency contact: Surgeon Call non-emergency contact if: you have any medication questions, your pain is not controlled, you have a fever, your temperature is above 101, your wound has increased redness and your wound has increased drainage Follow-up/Referrals: Jones Schaefer MD [Primary Care Provider] - Diet: Regular Addtl Attending Provider Instructions: ACTIVITY RECOMMENDATIONS: SELF CARE INSTRUCTIONS AFTER TOTAL SHOULDER ARTHROPLASTY REVERSE A. You may do daily exercises as taught in physical therapy while in hospital. No lifting with the operative arm. B. You are to wear your sling/immobilizer at all times EXCEPT when performing your daily exercises and for hygiene purposes. C. You may perform dry, daily dressing changes. Please keep your incision covered. You may shower 48 hours after surgery. Do not apply soap or any ointment/lotions directly over incision. Do not soak incision in bath tub/swimming pool. D. You may use ice as needed to operative shoulder. SPECIAL CARE INSTRUCTIONS: VERY IMPORTANT TO READ AND REVIEW A. There are a few signs you need to watch for after you are home. Call [facility] at [phone] if you experience any of the followin. Increased severe shoulder pain. Some pain is expected especially when you exercise. 2. Increased swelling in you shoulder or arm; pain or swelling in either upper extremity. 3. Any fluid drainage from the incision. 4. Shortness of breath or chest pain. B. Please call [facility] at [phone] if you have any questions or concerns about your operation or recovery. C. Call your physician if: 1. Temperature is greater than 101 degrees (F). 2. Pain is not relieved by prescribed pain medications. 3. Increase drainage or redness from incision. 4. Unanswered questions or concerns. FOLLOW UP VISIT: Please call [facility] at [phone] to schedule a follow up appointment with Dr. Mccain or his PA in 12-14 days from your surgery date. Stand-Alone Forms: [facility] [employer], Smoking Cessation Medications and DC Order Prescriptions: New oxycodone 5 mg Tablet 5 - 10 mg PO .Q4h-6h MDD 6 PRN (Reason: pain) Qty: 12 0RF Rx Instructions: Ongoing therapy, Kalyn Bailey supervising Take only if Hydrocodone is not controlling pain, do not take with Hydrocodone. cefadroxil 500 mg capsule 500 mg PO BID Qty: 28 0RF Continued atorvastatin 80 mg Tablet 80 mg PO PM hydrocodone-acetaminophen 5-325 mg Tablet 1 tab PO Q6H PRN (Reason: Pain) zolpidem 10 mg Tablet 10 mg PO HS PRN (Reason: Sleep) lisinopril 40 mg Tablet 40 mg PO HS omeprazole 20 mg Tablet,Delayed Release (Dr/Ec) 20 mg PO QAM aspirin 81 mg Capsule 81 mg PO HS Discharge Orders: Discharge Order (Routine); Ordered 04/20/22 Ordered By: Kirby Card Admission Data Admit Date/Time: 04/19/22 17:38 Attending Provider: Federico Mccain Admit Provider: Federico Mccain Primary Care Provider: Jones Schaefer Other Providers: Brian Ariza Other Interventions: Discharge Summary Assessment (RN) Last Done: 04/20/22 10:41
== END 2022-04-20 10:54 | disposition home or self-care (01) | DRG 483 ==
LOC: ASU 09:53 → 3E 17:38 → OBSVTOIN 17:38 → INTOOBSV 17:38
DX: R51.9 Headache, unspecified; M19.011 Primary osteoarthritis, right shoulder; I10 Essential (primary) hypertension; Z88.8 Allergy status to other drugs, medicaments and biological substances; K21.9 Gastro-esophageal reflux disease without esophagitis; M67.921 Unspecified disorder of synovium and tendon, right upper arm; Z96.9 Presence of functional implant, unspecified; E78.5 Hyperlipidemia, unspecified; Z79.82 Long term (current) use of aspirin; M75.21 Bicipital tendinitis, right shoulder; F17.210 Nicotine dependence, cigarettes, uncomplicated; I25.10 Atherosclerotic heart disease of native coronary artery without angina pectoris; E78.00 Pure hypercholesterolemia, unspecified; M75.101 Unspecified rotator cuff tear or rupture of right shoulder, not specified as traumatic; Z86.73 Personal history of transient ischemic attack (TIA), and cerebral infarction without residual deficits